=== PATIENT | male | born 1965 ===

== ENCOUNTER 2020-04-17 05:15 | Day surgery (SDC) | payer OTHER ==
[~2020-04-17 05:15] MED LIST: LANTUS SOL100 UNIT/1 SUBCUTANEO; XANAX XR2 MG PO
[2020-04-17] MEDS ORDERED: DUI500 PO (15:31)
[2020-04-17] MEDS ORDERED: OXYC1TAB9 PO (15:31)
== END 2020-04-17 19:25 | disposition home or self-care (01) ==
LOC: CIR.AMB 05:15
PROVIDERS: ATTEND Orthopaedic Surgery Sports Medicine
DX: M75.121 Complete rotator cuff tear or rupture of right shoulder, not specified as traumatic (principal); Z20.828 Contact with and (suspected) exposure to other viral communicable diseases